=== PATIENT | female | born 2000 | race Asian ===

== ENCOUNTER 2019-05-25 15:10 | Emergency (ER) | payer OTHER ==
[~2019-05-25] VITALS: Ht 167.6 cm; Wt 76.7 kg
[2019-05-25 15:12] VITALS: BP 118/74; Ht 167.6 cm; Wt 76.7 kg
== END 2019-05-25 16:49 | disposition home or self-care (01) ==
LOC: ED 15:10
DX: Z76.0 Encounter for issue of repeat prescription (principal)